=== PATIENT | female | born 1995 | race Caucasian/White ===

== ENCOUNTER 2019-06-27 10:45 | Emergency (ER) | payer OTHER ==
[2019-06-27 11:01] VITALS: BMI 32.5
[2019-06-27] MEDS ORDERED: ACETAMINOPHEN 325 MG TABLET (FP) PO ONE (12:07)
[2019-06-27] MEDS ORDERED: ACETAMINOPHEN 325 MG TABLET (FP) ONE (12:20)
[2019-06-27 12:30] LABS: BASO % 0.5 % (0-2.0); EOS % 1.7 % (0-4.5); HEMATOCRIT 43.4 % (32.4-45.2); HEMOGLOBIN 14.6 GM/dL (10.7-15.3); LYMPH % 19.5 % (8-40); MCH 32.9 pg (25.7-33.7); MCHC 33.8 g/dl (32.0-36.0); MEAN CELL VOLUME 97.3 fl (80-96); MEAN PLT VOLUME 8.4 fl (7.5-11.1); NEUT % 74.3 % (42.8-82.8); PLATELET COUNT 246 K/MM3 (134-434); RBC 4.45 M/mm3 (3.60-5.2); RDW 13.2 % (11.6-15.6); WHITE BLOOD COUNT 7.6 K/mm3 (4.0-10.0)
--- NOTE | 2019-06-27 12:41 | PDOC ---
History of Present Illness - General History Source: Patient Exam Limitations: Clinical Condition - History of Present Illness Initial Comments: 06/27/19 12:38 Patient with no significant past medical history present with complaint of 2- month history of intermittent midsternal chest pain which has worsened this morning upon wake. Patient reported worsening pain in his chest with deep breathing or cough. Denies nausea, vomiting, dizziness, headache, shortness of breath, numbness or tingling sensation. Denies sweats. Denies family history of chest pain cardiomyopathy. Is this a multiple visit Asthma Patient?: No Timing/Duration: getting worse, other (2 months) Severity: moderate Modifying Factors: worse with: movement Associated Symptoms: reports: chest pain. denies: cough, diaphoresis, fever/ chills, headaches, nausea/vomiting, shortness of breath, syncope, weakness Aspirin Received prior to arrival: Yes: no aspirin today Beta Edel Given by EMS(Core Measure): No Beta Edel Taken at Home(Core Measure): No Beta Edel Not Indicated at this Time(Core Measure): No <Arsenio Guillaume - Last Filed: 06/27/19 17:07> <Ramon Talley - Last Filed: 06/27/19 17:52> - General Chief Complaint: Chest Pain Stated Complaint: CHEST PAIN Time Seen by Provider: 06/27/19 11:39 Past History - Past Medical History COPD: No - Immunization History Immunization Up to Date: Yes - Psycho Social/Smoking Cessation Hx Smoking Status: No Smoking History: Current every day smoker Have you smoked in the past 12 months: Yes Number of Cigarettes Smoked Daily: 0 Cigars Per Day: 0 Information on smoking cessation initiated: Yes Hx Alcohol Use: No Drug/Substance Use Hx: Yes (marijuana) <Arsenio Guillaume - Last Filed: 06/27/19 17:07> <Ramon Talley - Last Filed: 06/27/19 17:52> - Past Medical History Allergies/Adverse Reactions: Allergies Allergy/AdvReac Type Severity Reaction Status Date / Time No Known Allergies Allergy Verified 06/27/19 10:55 Home Medications: Ambulatory Orders No Home Medications 0 dose .ROUTE UTDICT 02/21/14 Ibuprofen 600 mg PO Q8H PRN #20 tablet 06/27/19 Review of Systems - Review of Systems Able to Perform ROS?: Yes Is the patient limited Greek proficient: No Constitutional: No: Chills, Fever, Malaise HEENTM: No: Symptoms Reported, See HPI, Eye Pain, Blurred Vision, Tearing, Recent change in vision, Double Vision, Cataracts, Ear Pain, Ocular Prothesis, Ear Discharge, Nose Pain, Nose Congestion, Tinnitus, Nose Bleeding, Hearing Loss , Throat Pain, Throat Swelling, Mouth Pain, Dental Problems, Difficulty Swallowing, Mouth Swelling, Other Respiratory: No: Symptoms reported, See HPI, Cough, Orthopnea, Shortness of Breath, SOB with Exertion, SOB at Rest, Stridor, Wheezing, Productive cough, Hemoptysis, Other Cardiac (ROS): Yes: Symptoms Reported, See HPI, Chest Pain (mid-sternum pain). No: Edema, Irregular Heart Rate, Lightheadedness, Palpitations, Syncope, Chest Tightness, Other ABD/GI: No: Nausea, Vomiting Musculoskeletal: No: Symptoms Reported Integumentary: No: Symptoms Reported Neurological: No: Symptoms reported, Headache, Weakness, Dizziness All Other Systems: Reviewed and Negative <Arsenio Guillaume - Last Filed: 06/27/19 17:07> *Physical Exam - Vital Signs Last Vital Signs Temp Pulse Resp BP Pulse Ox 98.2 F 77 18 122/93 98 06/27/19 10:56 06/27/19 10:56 06/27/19 10:56 06/27/19 10:56 06/27/19 10:56 - Physical Exam Comments: 06/27/19 12:37 GENERAL: Well developed, well nourished. Awake and alert. No acute distress. HEENT: Normocephalic, atraumatic. PERRLA, EOMI. No conjunctival pallor. Sclera are non-icteric. Moist mucous membranes. Oropharynx is clear. NECK: Supple. Full ROM. CARDIOVASCULAR: Moderate tenderness to chest wall midsternal. Regular rate and rhythm. No murmurs, rubs, or gallops. Distal pulses are 2+ and symmetric. PULMONARY: No evidence of respiratory distress. Lungs clear to auscultation bilaterally. No wheezing, rales or rhonchi. ABDOMINAL: Soft. Non-tender. Non-distended. No rebound or guarding. No organomegaly. Normoactive bowel sounds. MUSCULOSKELETAL Normal range of motion at all joints. Moderate midsternal reproducible tenderness SKIN: Warm and dry. Normal capillary refill. Neuro: Alert, awake, appropriate. Gait is normal without ataxia. PSYCHIATRIC: Cooperative. Good eye contact. Appropriate mood General Appearance: Yes: Nourished, Appropriately Dressed. No: Apparent Distress <Arsenio Guillaume - Last Filed: 06/27/19 17:07> - Vital Signs Last Vital Signs Temp Pulse Resp BP Pulse Ox 98 F 74 18 106/75 98 06/27/19 14:40 06/27/19 14:40 06/27/19 14:40 06/27/19 14:40 06/27/19 14:40 <Ramon Talley - Last Filed: 06/27/19 17:52> ED Treatment Course - LABORATORY CBC & Chemistry Diagram: 06/27/19 12:00 06/27/19 12:00 - ADDITIONAL ORDERS Additional order review: 06/27/19 12:00 RBC 4.45 MCV 97.3 H MCHC 33.8 RDW 13.2 MPV 8.4 Neutrophils % 74.3 Lymphocytes % 19.5 Monocytes % 4.0 Eosinophils % 1.7 Basophils % 0.5 - RADIOLOGY Radiology Studies Ordered: Category Date Time Status CHEST PA & LAT [RAD] Stat Radiology 06/27/19 12:00 Ordered - Medications Given in the ED: ED Medications Discontinued Medications Generic Name Dose Route Start Last Admin Trade Name Wilmer PRN Reason Stop Dose Admin Acetaminophen 975 mg 06/27/19 12:07 06/27/19 12:23 Tylenol - PO 06/27/19 12:08 975 mg ONCE ONE Administration <Arsenio Guillaume - Last Filed: 06/27/19 17:07> - LABORATORY CBC & Chemistry Diagram: 06/27/19 12:00 06/27/19 12:00 - ADDITIONAL ORDERS Additional order review: Laboratory Results 06/27/19 06/27/19 06/27/19 13:00 13:00 12:00 Sodium 140 Potassium 4.1 Chloride 106 Carbon Dioxide 27 Anion Gap 6 L BUN 13.2 Creatinine 0.8 Est GFR (CKD-EPI)AfAm 119.60 Est GFR (CKD-EPI)NonAf 103.19 Random Glucose 93 Calcium 9.1 Total Bilirubin 1.1 H AST 29 ALT 28 Alkaline Phosphatase 69 Creatine Kinase 141 Troponin I < 0.02 Total Protein 7.4 Albumin 4.4 Urine Color Yellow Urine Appearance Clear Urine pH 5.5 Ur Specific [place] 1.021 Urine Protein Negative Urine Glucose (UA) Negative Urine Ketones Negative Urine Blood Negative Urine Nitrite Negative Urine Bilirubin Negative Urine Urobilinogen 1.0 Ur Leukocyte Esterase Negative Urine HCG, Qual Negative 06/27/19 12:00 RBC 4.45 MCV 97.3 H MCHC 33.8 RDW 13.2 MPV 8.4 Neutrophils % 74.3 Lymphocytes % 19.5 Monocytes % 4.0 Eosinophils % 1.7 Basophils % 0.5 - Medications Given in the ED: ED Medications Discontinued Medications Generic Name Dose Route Start Last Admin Trade Name Freq PRN Reason Stop Dose Admin Acetaminophen 975 mg 06/27/19 12:07 06/27/19 12:23 Tylenol - PO 06/27/19 12:08 975 mg ONCE ONE Administration <Ramon Talley - Last Filed: 06/27/19 17:52> Medical Decision Making - Medical Decision Making 06/27/19 12:40 Patient with no significant past medical history present with complaint of 2- month history of intermittent midsternal chest pain which has worsened this morning upon wake. Patient reported worsening pain in his chest with deep breathing or cough. Denies nausea, vomiting, dizziness, headache, shortness of breath, numbness or tingling sensation. Denies sweats. Denies family history of chest pain cardiomyopathy. Exam significant for reproducible midsternal moderate tenderness otherwise unremarkable exam. Normal cardio exam and normal lung exam. Symptoms likely costochondritis versus less likely cardiogenic pain. EKG ordered. CBC, cardiac profile lab ordered. Checks x-ray ordered to rule out acute chest pathology. Tylenol 975 mg p.o. ordered for pain 06/27/19 14:05 EKG shows normal sinus rhythm. Chest x-ray unremarkable. Cardiac profile lab negative. CBC with no acute pathology. Patient feeling better after Tylenol. Patient symptoms likely costochondritis and stable for discharge on ibuprofen as needed for pain with cardiology follow-up as needed. Patient is symptomatic now and stable for discharge <Arsenio Guillaume - Last Filed: 06/27/19 17:07> - Medical Decision Making 06/27/19 17:51 I reviewed the case of the mid-level practitioner and was available for consultation while in the emergency department <Ramon Talley - Last Filed: 06/27/19 17:52> Discharge - Discharge Information Problems reviewed: Yes - Admission No <Arsenio Guillaume - Last Filed: 06/27/19 17:07> <Ramon Talley - Last Filed: 06/27/19 17:52> - Discharge Information Clinical Impression/Diagnosis: Costochondral chest pain Condition: Stable Disposition: HOME - Additional Discharge Information Prescriptions: Ibuprofen 600 mg PO Q8H PRN #20 tablet PRN Reason: pain - Follow up/Referral Referrals: Olvin Crawford MD [Staff Physician] - - Patient Discharge Instructions Patient Printed Discharge Instructions: DI for Costochondritis, DI for Chest Pain Additional Instructions: Your labs was all normal. Your chest x-ray shows no abnormality. Your EKG was normal as well. Your symptoms likely caused by muscle pain. Take prescribed medication as needed for pain. Follow-up with referred physician practice market manager if symptoms persist for more than 4 days - Post Discharge Activity Work/Back to School Note: Back to Work
[2019-06-27 13:00] LABS: ALBUMIN 4.4 g/dl (3.4-5.0); ALK PHOS 69 U/L (45-117); ANION GAP 6 MMOL/L (8-16); BILIRUBIN,TOTAL 1.1 mg/dL (0.2-1); BLOOD UREA NITROGEN 13.2 mg/dL (7-18); CALCIUM 9.1 mg/dL (8.5-10.1); CHLORIDE 106 mmol/L (98-107); CO2 27 mmol/L (21-32); CREATININE 0.8 mg/dL (0.55-1.3); GLUCOSE,RANDOM 93 mg/dL (74-106); POTASSIUM 4.1 mmol/L (3.5-5.1); SGOT/AST 29 U/L (15-37); SGPT/ALT 28 U/L (13-61); SODIUM 140 mmol/L (136-145); TOT PROT 7.4 g/dl (6.4-8.2)
[2019-06-27 13:28] LABS: PH,URINE 5.5 (5.0-8.0); URINE APPEARANCE CLEAR; URINE BILIRUBIN NEGATIVE (NEGATIVE); URINE COLOR YELLOW; URINE GLUCOSE (UA) NEGATIVE (NEGATIVE); URINE KETONE NEGATIVE (NEGATIVE); URINE LEUK ESTERASE NEGATIVE (NEGATIVE); URINE NITRITE NEGATIVE (NEGATIVE); URINE PROTEIN NEGATIVE (NEGATIVE)
[2019-06-27 14:47] VITALS: BP 106/75; PULSE 74; TEMP 98
--- NOTE | 2019-06-27 15:14 | EKG ---
Test Reason : Blood Pressure : / mmHG Vent. Rate : 064 BPM Atrial Rate : 064 BPM P-R Int : 138 ms QRS Dur : 084 ms QT Int : 422 ms P-R-T Axes : 044 070 058 degrees QTc Int : 435 ms NORMAL SINUS RHYTHM WITH SINUS ARRHYTHMIA NORMAL ECG NO PREVIOUS ECGS AVAILABLE Confirmed by MD Jasvir, Hussein ([id number]) on 06/27/2019 3:14:30 PM Referred By: Confirmed By:Hussein Tay MD
== END 2019-06-27 14:40 | disposition home or self-care (01) ==
LOC: JER 10:45
DX: M94.0 Chondrocostal junction syndrome [Tietze] (principal); F17.210 Nicotine dependence, cigarettes, uncomplicated
CPT/HCPCS: 36415; 71046-TC-FY; 80053; 81003; 82550; 84484; 84703; 85025; 87086; 93005; 93010; 99283-25